=== PATIENT | male | born 1955 | race Caucasian/White ===

== ENCOUNTER → 2018-08-18 | Outpatient (CLI) | payer OTHER | LOC: CARD 12:05 | PROVIDERS: ATTEND Internal Medicine Cardiovascular Disease | DX: I25.110 Atherosclerotic heart disease of native coronary artery with unstable angina pectoris (principal); I08.2 Rheumatic disorders of both aortic and tricuspid valves | CPT/HCPCS: 93306 ==

== ENCOUNTER → 2018-08-27 | Outpatient (CLI) | payer OTHER ==
[~2018-08-27] VITALS: Ht 167.6 cm; Wt 74.8 kg
[~2018-08-27] MED LIST: CATHETER FLUSH 10 ML SYR IV PRN; REGADENOSON 0.4 MG/5 ML SYR (LEXISCAN) IV ONE
[2018-08-27 09:01] VITALS: BP 150/84
[2018-08-27 09:09] VITALS: BP 148/81
--- NOTE | 2018-08-27 13:31 | STRESS TEST ---
DATE OF SERVICE: EXERCISE THEN LEXISCAN MYOVIEW STRESS TEST REPORT REFERRING PHYSICIAN: None. Baseline heart rate is 54. Baseline blood pressure 146/75. Baseline EKG sinus rhythm with no ischemic changes. In summary, the patient was injected with 11.0 mCi of technetium-99 Myoview, scheduled initially for exercise stress test, was unable to exercise beyond 3 minutes of standard Harjeet protocol. Test was terminated and converted to Lexiscan Myoview stress test. The patient received 0.4 mg of Lexiscan, followed by 32.2 mCi of technetium-99 Myoview. Throughout the test, there were no EKG changes. The resting and stress images were reviewed and compared in the short axis, horizontal long axis, and vertical long axis views. The resting and stress images were reviewed and compared in the short axis, horizontal long axis, and vertical long axis views. Review of the images showed diaphragmatic attenuation with mild decreased uptake at the inferoapical segment with no significant ischemia or infarction. SSS is 3, SDS 2, TID value 1.03. On the gated images, the left ventricle appeared to be in normal size with normal contractility. Calculated ejection fraction 59%. CONCLUSION: 1. The patient was unable to exercise. Test was terminated and converted to Lexiscan Myoview stress test. 2. The patient tolerated Lexiscan well. 3. No EKG changes were noted during test. 4. Diaphragmatic attenuation with typical male pattern, no significant ischemia or infarction on SPECT images. 5. Normal left ventricular size with normal contractility. Calculated ejection fraction 59%. Job ID: [id number] DocumentID: [id number] Dictated Date: 08/27/2018 13:19:34 Classer Date: 08/27/2018 13:31:17 Dictated By: ROSS RECINOS MD
== END ==
LOC: CARD 07:21 → EDUNIT# 08:30
PROVIDERS: ATTEND Internal Medicine Cardiovascular Disease
DX: I25.110 Atherosclerotic heart disease of native coronary artery with unstable angina pectoris (principal); R07.9 Chest pain, unspecified; I10 Essential (primary) hypertension; E78.49 Other hyperlipidemia
CPT/HCPCS: 78452; 93017